=== PATIENT | female | born 1985 | race Caucasian/White ===

== ENCOUNTER 2016-09-03 03:36 | Emergency (ER) | payer MEDICAID, OTHER ==
[~2016-09-03] VITALS: Ht 170.2 cm; Wt 51.0 kg
[~2016-09-03 03:36] MED LIST: ASPI81 PO
[2016-09-03 03:42] VITALS: BP 114/76; PULSE 94; RESP 14; TEMP 98.3; O2SAT 98
[2016-09-03] MEDS ORDERED: ASPI81CH CHEW (03:47)
--- NOTE | 2016-09-03 04:06 | PD ---
HPI Chief Complaint: Abdominal Pain Time Seen by Provider: 03:55 Travel History International Travel<30 days: No Contact w/Intl Traveler<30days: No Traveled to known affect area: No History of Present Illness HPI This is a 30-year-old female who presents to the emergency department with back pain on both sides, moderate severity, that has been present intermittently for one week associated with change in the odor of her urine. She denies any fevers or chills. She denies any nausea or vomiting. She's had some clear vaginal discharge which she thinks is normal in the setting of her cycle. PFSH Past Medical History Blood Disorders: Yes (ANTIPHOSPHOLIPID ANTIBODIES) Diminished Hearing: No Respiratory: Yes (PNEUMONIA) Tetanus Vaccination: > 5 Years Influenza Vaccination: No ?: Not LMP: 5-30-17 : 4 Para: 1 Miscarriage: 3 : 0 Ovarian Cysts: Yes (BILATERAL) Past Surgical History Section: Yes (ONE) Social History Alcohol Use: No Tobacco Use: Yes (<1PPD) Substance Use: No Allergies-Medications (Allergen,Severity, Reaction): Coded Allergies: Lactose (Verified Allergy, Mild, LACTOSE INTOLERANT, 09/03/16) Reported Meds & Prescriptions Reported Meds & Active Scripts Active Reported Aspirin 81 Mg Chew 81 Mg CHEW DAILY Review of Systems Except as stated in HPI: all other systems reviewed are Neg Physical Exam Narrative GENERAL:Well appearing, no acute distress SKIN: Focused skin assessment warm and dry. HEAD: Atraumatic. Normocephalic. EYES: Pupils equal and round. No injection or drainage. ENT: Moist mucous membranes NECK: Trachea midline. CARDIOVASCULAR: Regular rate and rhythm. No murmur appreciated. RESPIRATORY: Clear to auscultation. Breath sounds equal bilaterally. GASTROINTESTINAL: Abdomen soft, non-tender, nondistended. MUSCULOSKELETAL: No obvious deformities. NEUROLOGICAL: Awake and alert. No obvious cranial nerve deficits. Moving all extremities. PSYCHIATRIC: Appropriate mood and affect; insight and judgment normal. Data Data Last Documented VS Vital Signs Date Time Temp Pulse Resp B/P Pulse Ox O2 Delivery O2 Flow Rate FiO2 09/03/16 03:42 98.3 94 14 114/76 98 Orders Complete Blood Count With Diff (09/03/16 04:04) Comprehensive Metabolic Panel (09/03/16 04:04) ^ Insert Iv (09/03/16 04:04) Urinalysis - C+S If Indicated (09/03/16 04:04) Ed Urine Pregnancytest Poc (09/03/16 04:04) Urine Culture (09/03/16 04:10) Ceftriaxone Inj (Rocephin Inj) (09/03/16 04:30) Labs Laboratory Tests Test 09/03/16 04:10 White Blood Count 10.1 TH/MM3 Red Blood Count 4.47 MIL/MM3 Hemoglobin 12.7 GM/DL Hematocrit 38.1 % Mean Corpuscular Volume 85.3 FL Mean Corpuscular Hemoglobin 28.4 PG Mean Corpuscular Hemoglobin 33.3 % Concent Red Cell Distribution Width 13.1 % Platelet Count 286 TH/MM3 Mean Platelet Volume 8.2 FL Neutrophils (%) (Auto) 64.2 % Lymphocytes (%) (Auto) 27.2 % Monocytes (%) (Auto) 5.1 % Eosinophils (%) (Auto) 2.7 % Basophils (%) (Auto) 0.8 % Neutrophils # (Auto) 6.4 TH/MM3 Lymphocytes # (Auto) 2.8 TH/MM3 Monocytes # (Auto) 0.5 TH/MM3 Eosinophils # (Auto) 0.3 TH/MM3 Basophils # (Auto) 0.1 TH/MM3 CBC Comment DIFF FINAL Differential Comment Urine Color YELLOW Urine Turbidity SLIGHT Urine pH 6.0 Urine Specific [place] 1.026 Urine Protein TRACE mg/dL Urine Glucose (UA) NEG mg/dL Urine Ketones TRACE mg/dL Urine Occult Blood NEG Urine Nitrite POS Urine Bilirubin NEG Urine Leukocyte Esterase NEG Urine RBC 0-2 /hpf Urine WBC 0-2 /hpf Urine Squamous Epithelial 0-5 /hpf Cells Urine Bacteria MANY /hpf Microscopic Urinalysis Comment CULTURE INDICATED Sodium Level 142 MEQ/L Potassium Level 3.6 MEQ/L Chloride Level 107 MEQ/L Carbon Dioxide Level 28.5 MEQ/L Anion Gap 7 MEQ/L Blood Urea Nitrogen 14 MG/DL Creatinine 0.80 MG/DL Estimat Glomerular Filtration 85 ML/MIN Rate Random Glucose 96 MG/DL Calcium Level 8.6 MG/DL Total Bilirubin 0.1 MG/DL Aspartate Amino Transf 14 U/L (AST/SGOT) Alanine Aminotransferase 16 U/L (ALT/SGPT) Alkaline Phosphatase 89 U/L Total Protein 7.7 GM/DL Albumin 3.9 GM/DL MDM Medical Decision Making Medical Screen Exam Complete: Yes Emergency Medical Condition: Yes Interpretation(s) Leukocytosis Electrolytes are reassuring Nitrites are positive and bacteria is positive in the urine Differential Diagnosis Pyelonephritis, renal failure, urinary tract infection, kidney stone Narrative Course This is a 30-year-old female who presents the emergency department with back pain and dysuria. She was placed on a monitor and an IV was established. Labs are obtained which are reassuring. Urinalysis confirms likely pyelonephritis. She was given a dose of ceftriaxone and will be discharged home with oral antibiotic therapy. Diagnosis Primary Impression: Pyelonephritis Patient Instructions: General Instructions Additional Instructions: If you develop fever, persistent vomiting, back pain, or inability to eat return to the emergency department as your urine infection may have progressed to a kidney infection. Complete your antibiotics as prescribed. Stay well hydrated with Gatorade or water. Followup with your primary care physician in 2-3 days if your symptoms have not resolved. Med/Other Pt SpecificInfo: Prescription(s) given Scripts Cephalexin (Keflex)500 Mg Vle717 Mg PO Q12H 7 Days Ref 0 Prov:Dennise Beard MD 09/03/16 Disposition: 01 DISCHARGE HOME Condition: Stable Dennise Beard MD Sep 03, 2016 04:06
[2016-09-03 04:18] LABS: AUTOMATED NEUTROPHIL # 6.4 TH/MM3 (1.8-7.7); BASOPHIL # 0.1 TH/MM3 (0-0.2); BASOPHIL % 0.8 % (0.0-2.0); EOSINOPHIL # 0.3 TH/MM3 (0-0.4); EOSINOPHIL % 2.7 % (0.0-4.0); HEMATOCRIT 38.1 % (35.0-46.0); HEMO FLAGS DIFF FINAL; LYMPH % 27.2 % (9.0-44.0); LYMPHOCYTE # 2.8 TH/MM3 (1.0-4.8); MEAN CELL VOLUME 85.3 FL (80.0-100.0); MEAN CORPUSCULAR HEMOGLOBIN 28.4 PG (27.0-34.0); MEAN CORPUSCULAR HGB CONC 33.3 % (32.0-36.0); MONO % 5.1 % (0.0-8.0); NEUT % 64.2 % (16.0-70.0); PLATELET COUNT 286 TH/MM3 (150-450); RED BLOOD COUNT 4.47 MIL/MM3 (4.00-5.30); RED CELL DISTRIBUTION WIDTH 13.1 % (11.6-17.2); WHITE BLOOD COUNT 10.1 TH/MM3 (4.0-11.0)
[2016-09-03 04:19] LABS: BLOOD, URINE NEG (NEG); GLUCOSE,URINE NEG (NEG); KETONE, URINE TRACE mg/dL (NEG)
[2016-09-03 04:23] LABS: NITRITE,URINE POS (NEG); URINE COLOR YELLOW (YELLW/STRAW)
[2016-09-03 04:24] LABS: BACTERIA, URINE MANY /hpf; COMMENT (UR) CULTURE INDICATED; CULTURE IF INDICATED CULTURE INDICATED; RBC, URINE 0-2 /hpf (0-3); SQUAMOUS EPITHELIAL CELL URINE 0-5 /hpf (0-5); WBC, URINE 0-2 /hpf (0-5)
[2016-09-03 04:25] LABS: CHLORIDE 107 MEQ/L (98-107); POTASSIUM 3.6 MEQ/L (3.5-5.1); SODIUM (NA) 142 MEQ/L (136-145)
[2016-09-03 04:29] LABS: ANION GAP 7 MEQ/L (5-15); BICARBONATE 28.5 MEQ/L (21.0-32.0); BLOOD UREA NITROGEN 14 MG/DL (7-18)
[2016-09-03] MEDS ORDERED: cefTRIAXone INJ 1,000 MG in SODIUM CHLORIDE 0.9% INJ 100 ML IV ONE (04:30)
[2016-09-03 04:31] LABS: ALT (GPT) 16 U/L (10-53)
[2016-09-03 04:32] LABS: AST (GOT) 14 U/L (15-37); GLOMERULAR FILTRATION RATE 85 ML/MIN (>89)
[2016-09-03 04:33] LABS: TOTAL BILIRUBIN ADULT 0.1 MG/DL (0.2-1.0)
[2016-09-03 04:35] LABS: ALKALINE PHOSPHATASE 89 U/L (45-117)
[2016-09-03] MEDS ORDERED: CEPH-460 PO (04:42)
[2016-09-03 05:08] VITALS: BP 110/76
== END 2016-09-03 05:17 | disposition home or self-care (01) ==
LOC: PHED 03:36
DX: N12 Tubulo-interstitial nephritis, not specified as acute or chronic (principal); B96.20 Unspecified Escherichia coli [E. coli] as the cause of diseases classified elsewhere
CPT/HCPCS: 80053; 81001; 85025; 87077; 87086; 87186; 96365; 99284; J0696

== ENCOUNTER 2017-03-26 21:04 | Emergency (ER) | payer MEDICAID, OTHER ==
[~2017-03-26] VITALS: Ht 170.2 cm; Wt 55.0 kg
[~2017-03-26 21:04] MED LIST changes: +ASPI-516 CHEW; -ASPI81 PO; +BACT800T5 PO; +CEPH-460 PO; +HYDR-3535 PO
[2017-03-26 21:07] VITALS: BP 109/63; PULSE 84; RESP 16; TEMP 98.3; O2SAT 100
[2017-03-26] MEDS ORDERED: PNV11TAB (21:11)
--- NOTE | 2017-03-26 21:51 | PD ---
HPI Chief Complaint: Abdominal Pain Time Seen by Provider: 21:24 Travel History International Travel<30 days: No Contact w/Intl Traveler<30days: No Traveled to known affect area: No History of Present Illness HPI Said 31-year-old woman who presents to the emergency department complaining of sore throat, as well as and some mild lower abdominal pain. She has a lot of anxiety. She's had multiple losses due to her antiphospholipid antibody syndrome and has not been able to get in to see her OB doctor yet. Last menstrual period was early February. She typically takes Lovenox when she is . She's had 3 losses including one late term, and four healthy children. Multiple failures are sick with strep throat. She otherwise has been doing well. She states some white vaginal discharge which is typical for her when she's , and a little bit of polyuria but no dysuria or other symptoms. History Past Medical History Narrative Medical Antiphospholipid antibody syndrome. Influenza Vaccination: No LMP: 02/17/17 : 8 Para: 4 Past Surgical History Surgical History: No Previous Surgery Social History Alcohol Use: No Tobacco Use: Yes (03/21 PPD) Allergies-Medications (Allergen,Severity, Reaction): Coded Allergies: lactose (Unverified Allergy, Mild, LACTOSE INTOLERANT, 03/26/17) Reported Meds & Prescriptions Reported Meds & Active Scripts Active Reported Gummies (Eax029/FA/Omega3/Dha/Fish Oil) 400 Mcg-32.5 Mg (25 Mg-7.5 Mg) Tab.chew Aspirin 81 Mg Chew 81 Mg CHEW DAILY Review of Systems Except as stated in HPI: all other systems reviewed are Neg Physical Exam Narrative GENERAL: Wall pain 31 year-old woman, no acute distress. SKIN: Focused skin assessment warm/dry. NECK: Trachea midline. No JVD. CARDIOVASCULAR: Regular rate and rhythm. No murmur appreciated. RESPIRATORY: No accessory muscle use. Clear to auscultation. Breath sounds equal bilaterally. GASTROINTESTINAL: Abdomen soft, non-tender, nondistended. Hepatic and splenic margins not palpable. MUSCULOSKELETAL: No obvious deformities. No clubbing. No cyanosis. No edema. NEUROLOGICAL: Awake and alert. No obvious cranial nerve deficits. Motor grossly within normal limits. Normal speech. PSYCHIATRIC: Appropriate mood and affect; insight and judgment normal. Data Data Last Documented VS Vital Signs Date Time Temp Pulse Resp B/P (MAP) Pulse Ox O2 Delivery O2 Flow Rate FiO2 03/26/17 21:07 98.3 84 16 109/63 (78) 100 Room Air Orders Orders Ed Poc Ultrasound (03/26/17 ) Group A Rapid Strep Screen (03/26/17 21:32) Beta Hcg (Quant/Titer) (03/26/17 21:32) Urinalysis - C+S If Indicated (03/26/17 21:47) Strep Culture (Group A) (03/26/17 21:30) Labs Laboratory Tests Test 03/26/17 21:50 03/26/17 22:00 Urine Color YELLOW Urine Turbidity CLEAR Urine pH 7.0 Urine Specific [place] 1.023 Urine Protein TRACE mg/dL Urine Glucose (UA) NEG mg/dL Urine Ketones NEG mg/dL Urine Occult Blood NEG Urine Nitrite NEG Urine Bilirubin NEG Urine Urobilinogen LESS THAN 2.0 MG/DL Urine Leukocyte Esterase NEG Urine WBC 1 /hpf Urine Squamous Epithelial Cells <1 /hpf Urine Mucus FEW /lpf Microscopic Urinalysis Comment CULT NOT INDICATED Human Chorionic Gonadotropin, Quant 205 [facility]U/[facility] Medical Decision Making Medical Screen Exam Complete: Yes Emergency Medical Condition: Yes Interpretation(s) Rapid strep negative Urine negative HCG 205 Differential Diagnosis Strep throat, ITP, ectopic, UTI, other Narrative Course Medical decision making 31 year-old woman, , looks well. Concern for URI, strep throat, UTI. She looks well. She is concerned about not being on her Lovenox. We can represcribe for her. She is arranging follow-up with Dr. Geiger. Attempted a bedside ultrasound. No clear IUP was identified. Labs unremarkable. We'll recommend follow-up with Dr. Geiger's office. We'll restart on her Lovenox. 48 hour repeat Quant. Procedures Procedure Narrative Plan care ultrasound: Focus transabdominal child perform a me at the bedside for the purpose of iron for IUP. No IUP was identified. Portable ultrasound unit was malfunctioning, and images were unable to be saved. Diagnosis Primary Impression: Additional Impressions: Antiphospholipid antibody syndrome Pharyngitis Additional Instructions: Return to the ED in 48 hours for repeat hCG level. Follow-up with Dr. Geiger at the first available appointment. Take Lovenox as prescribed. Return to the ER for any worsening pain, bleeding, or any other new or worsening symptoms. Med/Other Pt SpecificInfo: Prescription(s) given Scripts Enoxaparin Inj (Lovenox Inj) 40 Mg/0.4 Ml Syr 40 MG SQ DAILY for Blood Clot Prevention for 30 Days, SYRINGE 0 Refills Prov: Alton Baird MD 03/26/17 Alton Baird MD Mar 26, 2017 21:51
[2017-03-26 22:26] LABS: BILIRUBIN, URINE NEG (NEG); BLOOD, URINE NEG (NEG); GLUCOSE,URINE NEG (NEG); KETONE, URINE NEG (NEG); MUCUS URINE FEW /lpf (OCC); NITRITE,URINE NEG (NEG); SQUAMOUS EPITHELIAL CELL URINE <1 /hpf (0-5); URINE COLOR YELLOW (YELLW/STRAW); URINE LEUKOCYTE ESTERASE NEG (NEG)
[2017-03-26] MEDS ORDERED: ENOX40P SQ (22:51)
== END 2017-03-26 23:11 | disposition home or self-care (01) ==
LOC: NEPD 21:04
DX: O99.111 Other diseases of the blood and blood-forming organs and certain disorders involving the immune mechanism complicating pregnancy, first trimester (principal); D68.61 Antiphospholipid syndrome; J02.9 Acute pharyngitis, unspecified; O99.331 Smoking (tobacco) complicating pregnancy, first trimester; Z79.82 Long term (current) use of aspirin; Z34.91 Encounter for supervision of normal pregnancy, unspecified, first trimester
CPT/HCPCS: 81001; 84702; 87081; 87880

== ENCOUNTER 2017-03-28 21:14 | Emergency (ER) | payer MEDICAID, OTHER ==
[~2017-03-28 21:14] MED LIST changes: -BACT800T5 PO; -CEPH-460 PO; +ENOX40P SQ; -HYDR-3535 PO; +PNV11TAB
[2017-03-28 21:17] VITALS: BP 118/66; PULSE 81; RESP 16; TEMP 98.6; O2SAT 97
--- NOTE | 2017-03-29 02:44 | PD ---
HPI Chief Complaint: Related Problem Time Seen by Provider: 02:31 Travel History International Travel<30 days: No Contact w/Intl Traveler<30days: No Traveled to known affect area: No History of Present Illness HPI Patient is a 31 year old female who comes in for recheck of her Beta HCG. She was here 2 days ago with abdominal cramping. Her hormone level at that time was 200. She was told to return in 48 hours to recheck it. She says she is still having some lower abdominal cramping and cold symptoms. She denies SOB, chest pain, dysuria or fever. She denies vaginal bleeding or discharge. She says that waiting here for several hours has made her symptoms worse. Nothing seems to make her feel better. PFSH Past Medical History Blood Disorders: Yes (ANTIPHOSPHOLIPID ANTIBODIES) Diminished Hearing: No Respiratory: Yes (PNEUMONIA) Immunizations Current: No Pneumonia: Yes ?: : 8 Para: 4 Miscarriage: 3 : 0 Ovarian Cysts: Yes Past Surgical History Surgical History: No Previous Surgery Section: Yes (x4) Social History Alcohol Use: No Tobacco Use: Yes (/2 PPD) Substance Use: No Allergies-Medications (Allergen,Severity, Reaction): Coded Allergies: lactose (Unverified Allergy, Mild, LACTOSE INTOLERANT, 03/26/17) Reported Meds & Prescriptions Reported Meds & Active Scripts Active Lovenox Inj (Enoxaparin Sodium) 40 Mg/0.4 Ml Syr 40 Mg SQ DAILY 30 Days Reported Gummies (Pqq984/FA/Omega3/Dha/Fish Oil) 400 Mcg-32.5 Mg (25 Mg-7.5 Mg) Tab.chew Aspirin 81 Mg Chew 81 Mg CHEW DAILY Review of Systems General / Constitutional: No: Fever, Chills HENT: Positive: Congestion, No: Headaches, Lightheadedness Cardiovascular: No: Chest Pain or Discomfort Respiratory: Positive: Cough, No: Shortness of Breath Gastrointestinal: Positive: Abdominal Pain, No: Nausea, Vomiting Genitourinary: No: Dysuria, Discharge Musculoskeletal: No: Myalgias Skin: No Rash, No Change in Pigmentation Neurologic: No: Weakness, Dizziness Physical Exam Narrative GENERAL: Awake and alert, in no acute distress. SKIN: Focused skin assessment warm/dry. HEAD: Atraumatic. Normocephalic. EYES: Pupils equal and round. No scleral icterus. EOMI ENT: Mucous membranes pink and moist. CARDIOVASCULAR: Regular rate and rhythm. No murmur appreciated. RESPIRATORY: No accessory muscle use. Clear to auscultation. Breath sounds equal bilaterally. GASTROINTESTINAL: Abdomen soft, non-tender, nondistended. NEUROLOGICAL: Awake and alert. No obvious cranial nerve deficits. Motor grossly within normal limits. Normal speech. Data Data Last Documented VS Vital Signs Date Time Temp Pulse Resp B/P (MAP) Pulse Ox O2 Delivery O2 Flow Rate FiO2 03/28/17 21:17 98.6 81 16 118/66 (83) 97 Orders Orders Beta Hcg (Quant/Titer) (03/28/17 21:23) Labs Laboratory Tests Test 03/28/17 21:30 Human Chorionic Gonadotropin, Quant 473 MIU/ML [facility] Medical Decision Making Medical Screen Exam Complete: Yes Emergency Medical Condition: Yes Medical Record Reviewed: Yes Differential Diagnosis Encounter for blood work versus versus dehydration versus pelvic pain Narrative Course Patient is a 31-year-old female who comes in to have her beta hCG redrawn. She says she still having some lower abdominal cramping. At work that was checked at her previous visit 2 days ago showed no acute abnormalities. Her beta hCG has risen appropriately from 200 to 473. She says she would like to go home. She is advised follow-up with OB. Advised to drink plenty of water. Advised to take Tylenol as needed for pain. Advised to return any time for any worsening symptoms. Diagnosis Primary Impression: Qualified Codes: Z3A.01 - Less than 8 weeks gestation of Patient Instructions: General Instructions, (ED) Additional Instructions: Drink plenty of water. Take Tylenol as needed for pain. Follow-up with your OB. Return to the ED as needed for any worsening symptoms. Disposition: 01 DISCHARGE HOME Condition: Stable Beba Ventura MD Mar 29, 2017 02:44
== END 2017-03-29 03:00 | disposition home or self-care (01) ==
LOC: NEPC 21:14
DX: O26.891 Other specified pregnancy related conditions, first trimester (principal); R10.9 Unspecified abdominal pain; O99.111 Other diseases of the blood and blood-forming organs and certain disorders involving the immune mechanism complicating pregnancy, first trimester; D68.61 Antiphospholipid syndrome; F17.210 Nicotine dependence, cigarettes, uncomplicated; Z79.02 Long term (current) use of antithrombotics/antiplatelets; Z79.82 Long term (current) use of aspirin; Z3A.01 Less than 8 weeks gestation of pregnancy
CPT/HCPCS: 84702; 99281

== ENCOUNTER 2017-04-11 08:17 | Emergency (ER) | payer OTHER ==
[~2017-04-11] VITALS: Ht 170.2 cm; Wt 55.0 kg
[2017-04-11 08:19] VITALS: BP 104/58; PULSE 85; RESP 13; TEMP 98.4; O2SAT 99
[2017-04-11] MEDS ORDERED: SODIUM CHLOR 0.9% 1000 ML INJ 1,000 ML IV ONE (08:39)
[2017-04-11 09:13] LABS: AUTOMATED NEUTROPHIL # 4.5 TH/MM3 (1.8-7.7); BASOPHIL # 0.1 TH/MM3 (0-0.2); BASOPHIL % 0.9 % (0.0-2.0); EOSINOPHIL # 0.2 TH/MM3 (0-0.4); EOSINOPHIL % 2.9 % (0.0-4.0); HEMATOCRIT 38.9 % (35.0-46.0); HEMOGLOBIN 13.1 GM/DL (11.6-15.3); LYMPH % 30.8 % (9.0-44.0); LYMPHOCYTE # 2.3 TH/MM3 (1.0-4.8); MEAN CELL VOLUME 86.3 FL (80.0-100.0); MEAN CORPUSCULAR HGB CONC 33.6 % (32.0-36.0); MEAN PLATELET VOLUME 7.8 FL (7.0-11.0); MONO % 4.5 % (0.0-8.0); MONOCYTE # 0.3 TH/MM3 (0-0.9); NEUT % 60.9 % (16.0-70.0); PLATELET COUNT 341 TH/MM3 (150-450); RED BLOOD COUNT 4.51 MIL/MM3 (4.00-5.30); RED CELL DISTRIBUTION WIDTH 13.9 % (11.6-17.2); WHITE BLOOD COUNT 7.4 TH/MM3 (4.0-11.0)
[2017-04-11 09:31] LABS: BILIRUBIN, URINE NEG (NEG); BLOOD, URINE NEG (NEG); GLUCOSE,URINE NEG (NEG); KETONE, URINE NEG (NEG); MUCUS URINE FEW /lpf (OCC); NITRITE,URINE NEG (NEG); PH, URINE 5.5 (5.0-8.5); SQUAMOUS EPITHELIAL CELL URINE 9 /hpf (0-5); URINE COLOR YELLOW (YELLW/STRAW); URINE LEUKOCYTE ESTERASE NEG (NEG)
[2017-04-11 09:32] LABS: BICARBONATE 27.1 MEQ/L (21.0-32.0); CALCIUM 8.8 MG/DL (8.5-10.1); CREATININE 0.72 MG/DL (0.50-1.00)
--- NOTE | 2017-04-11 10:10 | RADRPT ---
EXAM DATE/TIME: 04/11/2017 09:24 [place] COMPARISON: No previous studies available for comparison. INDICATIONS : Left pelvic pain. LAB(S): Beta-hC, 108 MEDICAL HISTORY : . Antiphospholipids antibodies. Pneumonia. SURGICAL HISTORY : section. ENCOUNTER: Initial ACUITY: 1 day PAIN SCORE: 6/10 LOCATION: Bilateral pelvis MEASUREMENTS: UTERUS: 8.0 x 4.6 x 7.7 cm ENDOMETRIAL STRIPE: 17 mm RIGHT OVARY: 3.3 x 2.2 x 2.0 cm LEFT OVARY: 2.8 x 1.8 x 1.9 cm FREE FLUID: Insignificant CROWN RUMP LENGTH: 0.32 cm = 6 WKS 0 DAYS FHR: 107 BPM FINDINGS: There is a viable intrauterine of 6 weeks zero days by crown-rump length of 3.2 mm. h eart rate 107 beats per minute. Yolk sac present. Small subchorionic hemorrhage adjacent to gestation al sac measuring about 8 mm x 10 mm x 7 mm. Corpus luteum right ovary measuring about 1.1 cm. Left ovary unremarkable. No significant free fluid. CONCLUSION: 1. Single viable intrauterine of 6 weeks 0 days with heart rate 107 beats per minute. Small subchorionic hemorrhage. Corpus luteum cyst right ovary. Meek Tripp MD on April 11, 2017 at 10:01 Board Certified Radiologist. This report was verified electronically.
--- NOTE | 2017-04-11 10:33 | PD ---
HPI Chief Complaint: Abdominal Pain Time Seen by Provider: 08:27 Travel History International Travel<30 days: No Contact w/Intl Traveler<30days: No Traveled to known affect area: No History of Present Illness HPI 31-year-old female complains of pain in the left abdomen. There is a shooting quality to it and it's about 6/10 in severity. She believes she is about 6 weeks . She has no vaginal bleeding and no vaginal discharge. Left- sided flank pain is reported as well. No hematuria reported. Duration about one half days. She takes vitamins she has undergone a ultrasound at an outside facility however it was inconclusive due to early stage of . PFSH Past Medical History Blood Disorders: Yes (ANTIPHOSPHOLIPID ANTIBODIES) Diminished Hearing: No Respiratory: Yes (PNEUMONIA) Immunizations Current: No Pneumonia: Yes Influenza Vaccination: No ?: : 8 Para: 4 Miscarriage: 3 : 0 Ovarian Cysts: Yes Past Surgical History Section: Yes (x4) Social History Alcohol Use: No Tobacco Use: Yes (1/2 PPD) Substance Use: No Allergies-Medications (Allergen,Severity, Reaction): Coded Allergies: lactose (Unverified Allergy, Mild, LACTOSE INTOLERANT, 03/26/17) Reported Meds & Prescriptions Reported Meds & Active Scripts Active Lovenox Inj (Enoxaparin Sodium) 40 Mg/0.4 Ml Syr 40 Mg SQ DAILY 30 Days Reported Gummies (Pvq428/FA/Omega3/Dha/Fish Oil) 400 Mcg-32.5 Mg (25 Mg-7.5 Mg) Tab.chew Aspirin 81 Mg Chew 81 Mg CHEW DAILY Review of Systems Except as stated in HPI: all other systems reviewed are Neg Physical Exam Narrative GENERAL: 31-year-old female well-nourished well-developed no acute distress SKIN: Warm and dry. HEAD: Atraumatic. Normocephalic. EYES: Pupils equal and round. No scleral icterus. No injection or drainage. ENT: No nasal bleeding or discharge. Mucous membranes pink and moist. NECK: Trachea midline. No JVD. CARDIOVASCULAR: Regular rate and rhythm. RESPIRATORY: No accessory muscle use. Clear to auscultation. Breath sounds equal bilaterally. GASTROINTESTINAL: Abdomen soft, non-tender, nondistended. Hepatic and splenic margins not palpable. MUSCULOSKELETAL: Extremities without clubbing, cyanosis, or edema. No obvious deformities. NEUROLOGICAL: Awake and alert. No obvious cranial nerve deficits. Motor grossly within normal limits. Five out of 5 muscle strength in the arms and legs. Normal speech. PSYCHIATRIC: Appropriate mood and affect; insight and judgment normal. Data Data Last Documented VS Vital Signs Date Time Temp Pulse Resp B/P (MAP) Pulse Ox O2 Delivery O2 Flow Rate FiO2 04/11/17 10:59 04/11/17 08:19 98.4 85 13 99 Orders Orders Us Pelvis (Ques Preg/Ectopic) (04/11/17 ) Iv Access Insert/Monitor (04/11/17 08:39) Sodium Chlor 0.9% 1000 Ml Inj (Ns 1000 M (04/11/17 08:39) Beta Hcg (Quant/Titer) (04/11/17 08:39) Complete Blood Count With Diff (04/11/17 08:39) Basic Metabolic Panel (Bmp) (04/11/17 08:39) Urinalysis - C+S If Indicated (04/11/17 08:39) Ed Urine Pregnancytest Poc (04/11/17 08:39) Ed Discharge Order (04/11/17 10:33) Labs Laboratory Tests Test 04/11/17 08:55 White Blood Count 7.4 TH/MM3 Red Blood Count 4.51 MIL/MM3 Hemoglobin 13.1 GM/DL Hematocrit 38.9 % Mean Corpuscular Volume 86.3 FL Mean Corpuscular Hemoglobin 29.0 PG Mean Corpuscular Hemoglobin Concent 33.6 % Red Cell Distribution Width 13.9 % Platelet Count 341 TH/MM3 Mean Platelet Volume 7.8 FL Neutrophils (%) (Auto) 60.9 % Lymphocytes (%) (Auto) 30.8 % Monocytes (%) (Auto) 4.5 % Eosinophils (%) (Auto) 2.9 % Basophils (%) (Auto) 0.9 % Neutrophils # (Auto) 4.5 TH/MM3 Lymphocytes # (Auto) 2.3 TH/MM3 Monocytes # (Auto) 0.3 TH/MM3 Eosinophils # (Auto) 0.2 TH/MM3 Basophils # (Auto) 0.1 TH/MM3 CBC Comment DIFF FINAL Differential Comment Urine Color YELLOW Urine Turbidity HAZY Urine pH 5.5 Urine Specific [place] 1.025 Urine Protein TRACE mg/dL Urine Glucose (UA) NEG mg/dL Urine Ketones NEG mg/dL Urine Occult Blood NEG Urine Nitrite NEG Urine Bilirubin NEG Urine Urobilinogen LESS THAN 2.0 MG/DL Urine Leukocyte Esterase NEG Urine RBC LESS THAN 1 /hpf Urine WBC LESS THAN 1 /hpf Urine Squamous Epithelial Cells 9 /hpf Urine Mucus FEW /lpf Microscopic Urinalysis Comment CULT NOT INDICATED Blood Urea Nitrogen 14 MG/DL Creatinine 0.72 MG/DL Random Glucose 88 MG/DL Calcium Level 8.8 MG/DL Sodium Level 135 MEQ/L Potassium Level 3.8 MEQ/L Chloride Level 104 MEQ/L Carbon Dioxide Level 27.1 MEQ/L Anion Gap 4 MEQ/L Estimat Glomerular Filtration Rate 96 ML/MIN Human Chorionic Gonadotropin, Quant 66473 MIU/ML [facility] Medical Decision Making Medical Screen Exam Complete: Yes Emergency Medical Condition: Yes Differential Diagnosis IUP, UTI, ectopic , ov torsion, appendicitis, TOA, cervicitis, BV, Trichomoniasis, ov cyst, hernia, mittelschmerz, pain from menstruation Narrative Course CBC & BMP Diagram 04/11/17 08:55 Calcium Level 8.8 Last Impressions Pelvis Ultrasound 04/11/17 0000 Signed Impressions: Service Date/Time: Tuesday, April 11, 2017 09:24 - CONCLUSION: 1. Single viable intrauterine of 6 weeks 0 days with heart rate 107 beats per minute. Small subchorionic hemorrhage. Corpus luteum cyst right ovary. Meek Tripp MD Beta 28,104 The patient is resting comfortably and feels better, is alert and in no distress. The patients results and examination findings were discussed. The repeat examination is unremarkable and benign. The history, exam, diagnostic testing, and current condition do not suggest any significant pathology to warrant further testing, continued ED treatment, admission, or surgical evaluation at this point. The vital signs have been stable. The patient does not have uncontrollable pain, intractable vomiting, or other significant symptoms. The patient's condition is stable and appropriate for discharge. The patient will pursue further outpatient evaluation with a primary care physician or other designated or consulting physician as indicated in the discharge instructions. The patient expressed understanding and was agreeable with this plan. Diagnosis Primary Impression: IUP (intrauterine ), incidental Additional Impression: LLQ pain Referrals: [facility] Disposition: 01 DISCHARGE HOME Condition: Stable Leonard Olmedo MD Apr 11, 2017 10:33
== END 2017-04-11 11:07 | disposition home or self-care (01) ==
LOC: NEPE 08:17
DX: O26.91 Pregnancy related conditions, unspecified, first trimester (principal); R10.32 Left lower quadrant pain
CPT/HCPCS: 76700; 80048; 81001; 84702; 84703; 85025; 99285; J7030

== ENCOUNTER → 2017-06-07 | Outpatient (CLI) | payer OTHER | LOC: HPND 09:11 | PROVIDERS: ATTEND Obstetrics & Gynecology | DX: O99.112 Other diseases of the blood and blood-forming organs and certain disorders involving the immune mechanism complicating pregnancy, second trimester (principal); Z36.3 Encounter for antenatal screening for malformations | CPT/HCPCS: 76805 ==

== ENCOUNTER → 2017-07-10 | Outpatient (CLI) | payer MEDICAID, OTHER | LOC: HPND 14:33 | PROVIDERS: ATTEND Obstetrics & Gynecology | DX: O99.112 Other diseases of the blood and blood-forming organs and certain disorders involving the immune mechanism complicating pregnancy, second trimester (principal); Z36.2 Encounter for other antenatal screening follow-up; O09.292 Supervision of pregnancy with other poor reproductive or obstetric history, second trimester | CPT/HCPCS: 76816 ==

== ENCOUNTER → 2017-08-07 | Outpatient (CLI) | payer MEDICAID | LOC: HPND 14:42 | PROVIDERS: ATTEND Obstetrics & Gynecology | DX: O99.119 Other diseases of the blood and blood-forming organs and certain disorders involving the immune mechanism complicating pregnancy, unspecified trimester (principal) | CPT/HCPCS: 76816 ==

== ENCOUNTER 2017-09-05 14:27 | Emergency (ER) | payer MEDICAID ==
--- NOTE | 2017-09-05 15:14 | PD ---
HPI Chief Complaint Pelvic pressure Date Seen: Sep 05, 2017 Time Seen: 15:00 (Paulino Samaniego MD R1) Travel History International Travel<30 Days: No Contact w/Intl Traveler<30Days: No Known Affected Area: No (Paulino Samaniego MD R1) History of Present Illness HPI 31-year-old at 27/5 with a known history of antiphospholipid syndrome presenting to the OB ED with pelvic pressure. Patient states that she has been having occasional contractions, nothing regular or increasing in intensity. She also states that today she has been feeling pelvic pressure when she stands. She denies any gush of fluid, vaginal bleeding, decreased movement, vaginal discharge or dysuria. She does note that her urine has smelled more concentrated recently. Otherwise no fever chills, nausea or vomiting. Denies any trauma but did have intercourse day prior to presentation. (Paulino Samaniego MD R1) History Past Medical History Narrative Medical Antiphospholipid syndrome (Paulino Samaniego MD R1) Obstetric History Obstetric History G 10 P5 4 prior C-sections at term 1 stillborn vaginal delivery at 28 weeks gestation 4 prior first trimester spontaneous abortions Ultrasound showed a subchorionic hematoma early in this that is since resolved Sees OB diagnostics monthly No other known complications during this (Paulino Samaniego MD R1) Past Surgical History Narrative Surgical 4 prior C-sections No other surgeries (Paulino Samaniego MD R1) Family History Narrative Family History Maternal history of cancer, otherwise noncontributory (Paulino Samaniego MD R1) Social History Narrative Social History Lives at home with her fianc and 2-year-old child. 3 other living children are living with biological father Smokes 5-6 cigarettes per day Denies any alcohol or illicit drug use during this (Paulino Samaniego MD R1) Allergies-Medications (Allergen,Severity, Reaction): Coded Allergies: lactose (Unverified Allergy, Mild, LACTOSE INTOLERANT, 03/26/17) Home Meds Active Scripts Enoxaparin Inj (Lovenox Inj) 40 Mg/0.4 Ml Syr, 40 MG SQ DAILY for Blood Clot Prevention for 30 Days, SYRINGE 0 Refills Prov:Alton Baird MD 03/26/17 Reported Medications Pwb570/FA/Omega3/Dha/Fish Oil ( Gummies) 400 Mcg-32.5 Mg (25 Mg-7.5 Mg) Tab.chew 03/26/17 Aspirin (Aspirin) 81 Mg Chew, 81 MG CHEW DAILY, TAB 0 Refills 09/03/16 Review of Systems Except as stated in HPI: all other systems reviewed are Neg (Paulino Samaniego MD R1) Physical Exam Narrative GENERAL: Well-nourished, well-developed patient. SKIN: Warm and dry. HEAD: Normocephalic and atraumatic. EYES: No scleral icterus. No injection or drainage. ENT: No nasal drainage noted. Mucous membranes pink. Airway patent. NECK: Supple, trachea midline. No JVD. CARDIOVASCULAR: Regular rate and rhythm without murmurs, gallops, or rubs. RESPIRATORY: Breath sounds equal bilaterally. No accessory muscle use. BREASTS: Bilateral exam showed no masses , no retractions, no nipple discharge. ABDOMEN/GI: Abdomen soft, non-tender, bowel sounds present, no rebound, no guarding Gravid to 27 weeks size GENITOURINARY: External Genitalia: intact and normal in appearance Cervix: Posterior Dilatation: 0 Effacement: 0 Station: -3 Membranes: Intact Uterine Contractions: Small sporadic contractions appreciated FHT's: Category: 1 Baseline: 150 Reactive: Yes Variability: Moderate Decels: None EXTREMITIES: No cyanosis or edema. BACK: Nontender without obvious deformity. No CVA tenderness. NEUROLOGICAL: Awake and alert. Motor and sensory grossly within normal limits. Five out of 5 muscle strength in all muscle groups. Normal speech. (Paulino Samaniego MD R1) MDM Plan 31-year-old at 27/5 with a known history of antiphospholipid syndrome presenting to the OB ED with occasional contractions and pelvic pressure. - care with Dr. Geiger -Bimanual exam shows patient's cervix is long thick and closed -Reassuring category 1 FHT -Patient does have small occasional contractions on the monitor -Urine dipstick with 30 protein, small leukocyte esterase -Ordering official UA -Reji give 1 L bolus of lactated Ringer's -Tylenol 650 mg p.o. once -Counseled patient about resting and staying hydrated (Paulino Samaniego MD R1) Diagnosis Diagnosis: Primary Impression: Premature uterine contractions in second trimester, antepartum Additional Impression: Feeling pelvic pressure in in second trimester, antepartum Disposition: 01 DISCHARGE HOME Condition: Stable Paulino Samaniego MD R1 Sep 05, 2017 15:14 Bill Ramirez II, MD Sep 05, 2017 16:02
[2017-09-05] MEDS ORDERED: LACTATED RINGER'S 1000 ML INJ 1,000 ML IV ONE (15:30)
[2017-09-05] MEDS ORDERED: ACETAMINOPHEN 325 MG TAB PO ONE (15:30)
[2017-09-05 16:07] LABS: BACTERIA, URINE FEW /hpf; BILIRUBIN, URINE NEG (NEG); BLOOD, URINE SMALL (NEG); CALCIUM OXALATE CRYSTALS,URINE OCC /hpf; GLUCOSE,URINE NEG (NEG); KETONE, URINE NEG (NEG); NITRITE,URINE NEG (NEG); RENAL EPITHELIAL CELLS 1 /hpf; SQUAMOUS EPITHELIAL CELL URINE 3 /hpf (0-5); URINE COLOR YELLOW (YELLW/STRAW); URINE LEUKOCYTE ESTERASE MOD (NEG)
== END 2017-09-05 16:38 | disposition home or self-care (01) ==
LOC: HOBED 14:27
DX: O47.02 False labor before 37 completed weeks of gestation, second trimester (principal); B96.20 Unspecified Escherichia coli [E. coli] as the cause of diseases classified elsewhere; O99.112 Other diseases of the blood and blood-forming organs and certain disorders involving the immune mechanism complicating pregnancy, second trimester; D68.61 Antiphospholipid syndrome; O99.332 Smoking (tobacco) complicating pregnancy, second trimester; F17.210 Nicotine dependence, cigarettes, uncomplicated; Z3A.27 27 weeks gestation of pregnancy; Z79.82 Long term (current) use of aspirin; Z79.899 Other long term (current) drug therapy
CPT/HCPCS: 81001; 87077; 87086; 87186; 96360; 99284; J7120

== ENCOUNTER → 2017-09-11 | Outpatient (CLI) | payer MEDICAID | LOC: HPND 14:39 | PROVIDERS: ATTEND Obstetrics & Gynecology | DX: O99.112 Other diseases of the blood and blood-forming organs and certain disorders involving the immune mechanism complicating pregnancy, second trimester (principal); D68.61 Antiphospholipid syndrome | CPT/HCPCS: 76816 ==

== ENCOUNTER 2017-11-13 14:27 | Inpatient (IN) ==
[2017-11-13] MEDS ORDERED: Phenylephrine/NS 1000 MCG/10ML Syringe IV.PUSH ONE (14:54)
[2017-11-13] MEDS ORDERED: Citric Acid/Sodium Citrate Liq 30 ML UDC PO SCH (15:15)
--- NOTE | 2017-11-13 15:24 | P.HPOB ---
History of Present Illness Primary Care Physician: No Primary Care Physician Dr. Geiger Chief Complaint: Painful contractions History of Present Illness: Patient is a 31-year-old white female G 10 now 37 weeks previous C- section [address] Geiger's who presents now with contractions and decreased movement. She presents complaining of painful regular contractions and on the monitor every 3-4 minute she is having a significant contractions that she certainly describes as very painful, heart rate tracing reactive, patient has a history of antiphospholipid syndrome and has had a demise in the past that she did deliver vaginally and then 4 C- sections she has had for spontaneous AB's as well once again is all related to her coagulation defect. She has been on heparin and aspirin through this and her last dosing was at 5 AM this morning a shot of heparin and baby aspirin Weeks Gestation:: 37 Para: 5 (4 C-sections 1 vaginal the demise) : 10 Total # of Miscarriage(s): 4 Review of Systems Constitutional: Denies anorexia, Denies body ache(s), Denies chills, Denies daytime sleepiness, Denies excessive sweating, Denies fatigue, Denies fever(s), Denies headache(s), Denies increased appetite, Denies lack of energy, Denies malaise, Denies night sweats, Denies weakness, Denies weight gain, Denies weight loss, Denies other Cardiovascular: Denies bluish discoloration of hand/feet, Denies chest pain, Denies chest pain at rest, Denies chest pain with activity, Denies excessive sweating, Denies fainting, Denies fast heart rate, Denies foot swelling, Denies generalized swelling, Denies irregular heart rhythm, Denies leg pain with activity, Denies leg sores, Denies leg swelling, Denies lightheadedness, Denies radiating jaw, neck or arm pain, Denies rapid, pounding, or irregular heartbeat , Denies shortness of breath, Denies shortness of breath with activity, Denies shortness of breath when lying down, Denies shortness of breath causing sudden awakening, Denies slow heart rate, Denies other Respiratory: Denies change in phlegm color, Denies chest congestion, Denies cough, Denies coughing up blood, Denies excessive phlegm production, Denies pain on inspiration, Denies pain with cough, Denies shortness of breath, Denies shortness of breath with activity, Denies snoring, Denies stridor, Denies wheezing, Denies other Gastrointestinal: Reports abdominal pain, Denies belching, Denies black, tarry stools, Denies bloating, Denies bright, red blood in stools, Denies change in bowel habits, Denies constant urge to pass stool, Denies change in stools, Denies coffee ground vomit, Denies constipation, Denies cramping, Denies difficulty swallowing, Denies excessive passing of gas, Denies feeling full early, Denies heartburn, Denies incontinent of stools, Denies loose stools, Denies nausea, Denies pain with swallowing, Denies vomiting, Denies vomiting blood, Denies other Genitourinary: Denies abnormal periods, Denies abnormal vaginal bleeding, Denies absent period, Denies bleeding between periods, Denies blood in urine, Denies difficulty starting urination, Denies difficulty urinating, Denies dribbling after urination, Denies frequent nighttime urination, Denies genital itching, Denies genital lesions, Denies heavy periods, Denies hot flashes, Denies light periods, Denies nipple discharge, Denies painful intercourse, Denies painful periods, Denies painful urination, Denies pelvic pain, Denies prolapse symptoms, Denies sexual problems, Denies side pain, Denies urinary incontinence, Denies urinary urgency, Denies vaginal discharge, Denies vaginal dryness, Denies vaginal odor, Denies vaginal itching, Denies other Comments: Cervix is closed thick and high posterior Musculoskeletal: Denies abnormal walking, Denies back pain, Denies body aches, Denies decreased muscle mass, Denies deformity, Denies joint pain, Denies joint swelling, Denies limited joint movement, Denies loss of height, Denies muscle cramps, Denies muscle weakness, Denies neck pain, Denies numbness, Denies radiating pain into limb, Denies stiffness, Denies tingling, Denies other Neurologic: Denies abnormal hearing, Denies abnormal movements, Denies abnormal speech, Denies abnormal walking, Denies behavioral changes, Denies burning sensations, Denies confusion, Denies dizziness, Denies fainting, Denies frequent falls, Denies headache(s), Denies lack of coordination, Denies localized weakness, Denies loss of vision, Denies memory loss, Denies numbness, Denies other visual disturbances, Denies radiating pain, Denies restless legs, Denies convulsions, Denies seizure-like activity, Denies sensory deficit, Denies tingling, Denies tingling/numbness/burning sensations, Denies tremor(s), Denies unsteadiness, Denies weakness, Denies other PMFSH - Medical History Medical History: Medical History (Last Updated 10/27/17 @ 17:36 by Bill Ramirez MD) Antiphospholipid antibody syndrome complicating - Surgical History Surgical History: Surgical History (Last Updated 11/10/17 @ 18:54 by Alton Swain MD) History of delivery - Tobacco History Smoking Status: Current every day smoker Tobacco Type: Cigarettes - Alcohol History How Often Do You Have a Drink Containing Alcohol: Never - Substance Use History Substance History: No History of Abuse - Travel History History of Recent Travel: No Recent Travel in the [place] Within the Last 8 Weeks: No Recent Travel Out of the Country Within the Last 8 Weeks: No Medications and Allergies Active Medications: Active Medications Citric Acid/Sodium Citrate (Sodium Citrate/Citric Acid Liq) 30 ml PO MICROELECTRONICS TECHNICIAN ANDREW Stop: 11/17/17 15:14 Cefazolin Sodium 2,000 mg/ (Sodium Chloride) 100 mls @ 200 mls/hr IV.SIG MICROELECTRONICS TECHNICIAN ANDREW Stop: 11/17/17 15:59 Lactated Ringer's (Lr 1000 Ml Inj) 1,000 mls @ 150 mls/hr IV.CONT .Q6H40M [facility] Lactated Ringer's (Lr 1000 Ml Inj) 1,000 mls @ 2,000 mls/hr IV.SIG .Q30M ONE Stop: 11/13/17 15:44 Allergies Allergy/AdvReac Type Severity Reaction Status Date / Time lactose Allergy Mild LACTOSE Unverified 03/26/17 21:28 INTOLERANT Exam Vital signs: Vital Signs 11/13/17 14:58 Temperature 98.9 F Pulse Rate 105 H Respiratory Rate 17 Blood Pressure 119/67 - Constitutional no acute distress - Routine HEENT Exam Head: Present: normocephalic, atraumatic - Routine Respiratory Exam Present: CTA bilaterally - Routine Cardiovascular Exam Present: RRR, S1, S2 - Routine Abdominal Exam Present: soft Comments: Size equal dates - Routine Exam Comments: Cervix is closed thick and high - Routine Skin Exam Present: intact Comments: A lot of tattoos - Routine Neurological Exam Present: alert, oriented X3, CN II-XII intact Caprini VTE Risk Assessment Caprini VTE Risk Assessment: Moderate/High Risk (score >= 2) Caprini Risk Assessment Model: Point Value = 1 Point Value = 2 Point Value = 3 Point Value = 5 Age 41-60 Minor surgery BMI > 25 kg/m2 Swollen legs Varicose veins or History of unexplained or recurrent spontaneous Oral contraceptives or hormone replacement Sepsis (< 1 month) Serious lung disease, including pneumonia (< 1 month) Abnormal pulmonary function Acute myocardial infarction Congestive heart failure (< 1 month) History of inflammatory bowel disease Medical patient at bed rest Age 61-74 Arthroscopic surgery Major open surgery (> 45 min) Laparoscopic surgery (> 45 min) Malignancy Confined to bed (> 72 hours) Immobilizing plaster cast Central venous access Age >= 75 History of VTE Family history of VTE Factor V Leiden Prothrombin [id number] Lupus anticoagulant Anticardiolipin antibodies Elevated serum homocysteine Heparin-induced thrombocytopenia Other congenital or acquired thrombophilia Stroke (< 1 month) Elective arthroplasty Hip, pelvis, or leg fracture Acute spinal cord injury (< 1 month) Prophylaxis Regimen: Total Risk Factor Score Risk Level Prophylaxis Regimen 0-1 Low Early ambulation 2 Moderate Order ONE of the following: *Sequential Compression Device (SCD) *Heparin 5000 units SQ BID 3-4 Higher Order ONE of the following medications: *Heparin 5000 units SQ TID *Enoxaparin/Lovenox 40 mg SQ daily (WT < 150 kg, CrCl > 30 mL/min) *Enoxaparin/Lovenox 30 mg SQ daily (WT < 150 kg, CrCl > 10-29 mL/min) *Enoxaparin/Lovenox 30 mg SQ BID (WT < 150 kg, CrCl > 30 mL/min) AND/OR *Sequential Compression Device (SCD) 5 or more Highest Order ONE of the following medications: *Heparin 5000 units SQ TID (Preferred with Epidurals) *Enoxaparin/Lovenox 40 mg SQ daily (WT < 150 kg, CrCl > 30 mL/min) *Enoxaparin/Lovenox 30 mg SQ daily (WT < 150 kg, CrCl > 10-29 mL/min) *Enoxaparin/Lovenox 30 mg SQ BID (WT < 150 kg, CrCl > 30 mL/min) AND *Sequential Compression Device (SCD) Assessment and Plan - Diagnosis (1) Previous section complicating Code(s): O34.219 - Maternal care for unspecified type scar from previous delivery Status: Acute (2) Uterine contractions during Code(s): O62.2 - Other uterine inertia Status: Acute (3) Antiphospholipid syndrome complicating , antepartum Code(s): O99.119 - Other diseases of the blood and blood-forming organs and certain disorders involving the immune mechanism complicating , unspecified trimester; D68.61 - Antiphospholipid syndrome Status: Acute - Plan Plan is for RCS today after discussing with Dr Geiger
[2017-11-13] MEDS ORDERED: Morphine Sulfate PF Inj 5 MG/10 ML Ampul ONE (15:56)
[2017-11-13] MEDS ORDERED: ceFAZolin Inj 2,000 MG in Sodium Chlor 0.9% Inj 80 ML IV.SIG SCH (16:00)
[2017-11-13 16:15] LABS: Baso # (Auto) 0.1 th/mm3 (0.0-0.2); Baso % (Auto) 0.4 % (0.0-2.0); Eos # (Auto) 0.1 th/mm3 (0.0-0.4); Eos % (Auto) 0.7 % (0.0-4.0); Hematocrit 30.6 % (35.0-46.0); Hemoglobin 10.2 gm/dL (11.6-15.3); Lymph # (Auto) 2.3 th/mm3 (1.0-4.8); Lymph % (Auto) 12.8 % (9.0-44.0); Mean Corpuscular HGB Conc 33.5 % (32.0-36.0); Mean Corpuscular Hemoglobin 28.2 pg (27.0-34.0); Mean Corpuscular Volume 84.4 fL (80.0-100.0); Mean Platelet Volume 8.9 fL (7.0-11.0); Mono # (Auto) 0.8 th/mm3 (0.0-0.9); Mono % (Auto) 4.2 % (0.0-8.0); Neut # (Auto) 14.7 th/mm3 (1.8-7.7); Neut % (Auto) 81.9 % (16.0-70.0); Platelet Count 272 th/mm3 (150-450); Red Blood Count 3.62 mil/mm3 (4.00-5.30); Red Cell Distribution Width 13.5 % (11.6-17.2); White Blood Count 17.9 th/mm3 (4.0-11.0)
[2017-11-13 16:22] LABS: Amphetamine Screen,Urine Neg (Neg); Barbiturate Screen,Urine Neg (Neg); Cannabinoid Screen,Urine Neg (Neg); Cocaine Screen,Urine Neg (Neg)
[2017-11-13 16:24] LABS: Bilirubin,Urine Negative (Negative); Clarity,Urine Clear (Clear); Color,Urine Yellow (Yellw/Straw); Glucose,Urine (UA) Negative (Negative); Leukocyte Esterase,Urine Negative (Negative); Mucus,Urine Few /lpf (Occasional); Nitrite,Urine Negative (Negative); Specific Gravity,Urine 1.009 (1.002-1.035); Squamous Epithelial Cell,Urine 1 /hpf (0-5)
[2017-11-13 16:24] LABS: Activated Partial Thrombo Time 23.1 sec (24.3-30.1); INR 0.9 Ratio; Prothrombin Time 9.4 sec (9.8-11.6)
[2017-11-13 16:25] LABS: Opiate Screen,Urine Neg (Neg)
[2017-11-13] MEDS ORDERED: Naloxone Inj 0.4 MG/ML Vial IV.PUSH PRN (17:15)
[2017-11-13] MEDS ORDERED: Oxytocin 30 Units/500ml Premix 30 UNITS/500 ML BAG IV.SIG ONE (18:48)
[2017-11-13] MEDS ORDERED: Acetaminophen 325 MG Tablet PO PRN (18:48)
[2017-11-13] MEDS ORDERED: Simethicone 80 MG Chew Tablet PO PRN (18:48)
[2017-11-13] MEDS ORDERED: Zolpidem Tartrate 5 MG Tablet PO PRN (18:48)
[2017-11-13] MEDS ORDERED: Oxytocin 30 Units/500ml Premix 30 UNITS/500 ML BAG ONE (19:06)
--- NOTE | 2017-11-13 21:35 | P.OP ---
- Preoperative Diagnosis (1) Uterine contractions during (2) Previous section complicating (3) Antiphospholipid syndrome complicating , antepartum - Postoperative Diagnosis (1) Uterine contractions during (2) Previous section complicating (3) Antiphospholipid syndrome complicating , antepartum (4) Pelvic adhesions Date of procedure: 11/15/17 Procedure: Repeat Low Transverse C section Anesthesia: spinal Surgeon: Isaac Geiger MD Estimated blood loss (mL): 500 Operation and Findings: Findings Normal male Apgars 7/8 weight 6/10 Normal uterus normal to normal ovaries normal posterior anterior cul-de-sac. The bladder was tacked up very high over the lower uterine segment and required quite a bit of dissection to get it down. Upon entering the uterus we encountered the placenta and needed to go through it to get to the baby. Complications she required some 100 amount of dissection to get the bladder off the lower uterine segment in order to enter the uterus. Procedure in detail patient was taken to the operating room identified by name band and verbally she was given a spinal anesthetic prepped and draped in the usual sterile fashion for a section. The timeout was taken and several old incisions were then excised completely with a fairly wide excision. This incision was taken down to the fascia the fascia was taken off the rectus muscle by blunt and sharp dissection the rectus muscles were spread bluntly and the peritoneum entered under direct vision without difficulty the incision was extended with care to avoid the urinary bladder the bladder was noted to be quite high up on the lower uterine segment and a bladder flap was created in the usual fashion but this required quite a bit of extra dissection in order to preserve bladder. The lower uterine segment was then incised transversely and taken down until we encountered the placenta we then poked through the placenta gravid vertex and delivered the baby quickly and efficiently. We did not delay cord clamping since we went to the placenta and the baby was handed off to the resuscitation team present. The placenta was then delivered manually without difficulty and the the uterus was curettaged twice with a wet lap. The uterine incision was then repaired with 0 Vicryl in a running fashion in 2 layers the second layer imbricating the first. The cul-de-sacs were cleaned of blood and debris the uterus was delivered back into the abdomen and hemostasis was checked and was excellent. The rectus muscles were then reapproximated with 0 Vicryl in a running fashion. Small bleeders were coagulated because she is on heparin we made especially sure that each layer was quite dry before proceeding the fascia was then repaired with 0 Vicryl from lateral to midline bilaterally and the subcu was repaired with 3-0 Vicryl in a running fashion this skin was repaired with 4-0 Monocryl in a subcuticular fashion with excellent results she tolerated the procedure well went to recovery room and will be restarted on heparin in 24 hours since she got epidural.
[2017-11-13] MEDS: Senna/Docusate Sodium 8.6/50 MG Tablet PO PRN (21:45)
[2017-11-13] MEDS ORDERED: Oxytocin 30 Units/500ml Premix 30 UNITS/500 ML BAG IV.SIG PRN (23:49)
[2017-11-14 05:50] LABS: Baso # (Auto) 0.1 th/mm3 (0.0-0.2); Baso % (Auto) 0.3 % (0.0-2.0); Eos % (Auto) 0.2 % (0.0-4.0); Hemoglobin 8.8 gm/dL (11.6-15.3); Lymph # (Auto) 2.1 th/mm3 (1.0-4.8); Lymph % (Auto) 12.7 % (9.0-44.0); Mean Corpuscular HGB Conc 35.4 % (32.0-36.0); Mean Corpuscular Hemoglobin 29.9 pg (27.0-34.0); Mean Corpuscular Volume 84.5 fL (80.0-100.0); Mean Platelet Volume 9.2 fL (7.0-11.0); Mono # (Auto) 1.1 th/mm3 (0.0-0.9); Mono % (Auto) 6.4 % (0.0-8.0); Neut # (Auto) 13.4 th/mm3 (1.8-7.7); Neut % (Auto) 80.4 % (16.0-70.0); Platelet Count 283 th/mm3 (150-450); Red Blood Count 2.96 mil/mm3 (4.00-5.30); Red Cell Distribution Width 13.3 % (11.6-17.2); White Blood Count 16.7 th/mm3 (4.0-11.0)
[2017-11-14] MEDS ORDERED: Heparin - SQ 10,000 UNITS/ML Vial SQ SCH (07:00)
[2017-11-14] MEDS: Senna/Docusate Sodium 8.6/50 MG Tablet PO PRN (12:10)
[2017-11-14] MEDS: Ibuprofen 600 MG Tablet PO PRN ×2 (12:10→19:45)
--- NOTE | 2017-11-14 14:31 | P.PNOB ---
Subjective Post op day: 1 Objective Vital Signs/I&O: Vital Signs 11/13/17 14:58 11/13/17 18:45 11/13/17 19:00 Temperature 98.9 F 97.4 F L Pulse Rate 105 H 77 64 Respiratory Rate 17 18 18 Blood Pressure 119/67 109/53 L 103/55 L 11/13/17 19:15 11/13/17 19:30 11/13/17 19:43 Temperature 97.5 F L Pulse Rate 62 79 62 Respiratory Rate 20 20 20 Blood Pressure 103/52 L 108/52 L 11/13/17 19:45 11/13/17 20:15 11/14/17 00:00 Temperature 97.6 F 97.4 F L Pulse Rate 62 62 Respiratory Rate 16 16 Blood Pressure 101/54 L 98/56 L 91/48 L 11/14/17 00:20 11/14/17 04:00 11/14/17 08:20 Temperature 98.0 F 97.6 F Pulse Rate 66 70 Respiratory Rate 16 18 18 Blood Pressure 97/53 L 102/61 Intake & Output 11/13/17 11/14/17 11/14/17 18:59 06:59 18:59 Intake Total 500 / 500 100 / 100 Balance 500 / 500 100 / 100 Intake: IV 500 / 500 100 / 100 Pitocin 30 Units/NS 500 ml 500 / 500 Premix 30 units In 500 ml @ 100 mls/hr IV.SIG UNSCH PRN Rx#: [id number] Ancef Inj 1,000 MG In NS Inj 100 / 100 100 ML @ 200 mls/hr IV.SIG Q8H ANDREW Rx#:[id number] Result Diagrams: 11/14/17 04:38 Objective Remarks: GENERAL: Well-nourished, well-developed patient. CARDIOVASCULAR: Regular rate and rhythm without murmurs, gallops, or rubs. RESPIRATORY: Breath sounds equal bilaterally. No accessory muscle use. ABDOMEN/GI: Abdomen soft, non-tender, bowel sounds present. Incision: dressing Clean, dry and intact. Fundus: Firm, non-tender at umbilicus. GENITOURINARY: Light to moderate bleeding. EXTREMITIES: No cyanosis or edema, non-tender, without signs of DVT. Medications and IVs: Active Medications Acetaminophen (Tylenol) 650 mg PO Q6H PRN PRN Reason: PAIN SCALE 1 TO 2 Citric Acid/Sodium Citrate (Sodium Citrate/Citric Acid Liq) 30 ml PO ELECTRONIC EQUIPMENT MAINT TECH [facility] Stop: 11/17/17 15:14 Diphenhydramine HCl (Benadryl) 50 mg PO Q6H PRN PRN Reason: MILD TO MODERATE ITCHING Stop: 11/14/17 17:14 Last Admin: 11/13/17 21:45 Dose: 50 mg Diphenhydramine HCl (Benadryl Inj) 25 mg IV.PUSH Q6H PRN PRN Reason: MILD TO MODERATE ITCHING Stop: 11/14/17 17:14 Diphtheria/Pertussis/Tetanus Vacc (Boostrix Vaccine Inj) 0.5 ml IM .ONCE ONE Stop: 11/14/17 16:01 Heparin Sodium (Porcine) (Heparin Inj) 5,000 units SQ Q12H [facility]1983 Cefazolin Sodium 2,000 mg/ (Sodium Chloride) 100 mls @ 200 mls/hr IV.SIG ELECTRONIC EQUIPMENT MAINT TECH [facility] Stop: 11/17/17 15:59 Lactated Ringer's (Lr 1000 Ml Inj) 1,000 mls @ 150 mls/hr IV.CONT .Q6H40M [facility] Last Admin: 11/14/17 07:34 Dose: Not Given Lactated Ringer's (Lr 1000 Ml Inj) 1,000 mls @ 100 mls/hr IV.CONT .Q10H [facility] Stop: 11/14/17 19:48 Last Admin: 11/14/17 00:45 Dose: 100 mls/hr Oxytocin (Pitocin 30 Units/Ns 500 Ml Premix) 30 units in 500 mls @ 100 mls/hr IV.SIG UNSCH PRN PRN Reason: Heavy bleeding Last Infusion: 11/14/17 00:45 Dose: Infused Ibuprofen (Motrin) 800 mg PO Q8H PRN PRN Reason: cramping Last Admin: 11/13/17 23:47 Dose: 800 mg Ibuprofen (Motrin) 600 mg PO Q6H PRN PRN Reason: ABDOMINAL PAIN Last Admin: 11/14/17 12:10 Dose: 600 mg Measles/Mumps/Rubella Vaccine Live (M-M-R Ii Vaccine Inj) 0.5 ml SQ .ONCE ONE Stop: 11/14/17 16:01 Miscellaneous Information ([facility] [place] Nursing Information) 1 each OTHER UNSCH PRN PRN Reason: SEE LABEL COMMENTS Stop: 11/14/17 17:14 Miscellaneous Information ([facility] [place] Nursing Information) 1 each OTHER UNSCH PRN PRN Reason: SEE LABEL COMMENTS Stop: 11/14/17 17:14 Naloxone HCl (Narcan Inj) 0.4 mg IV.PUSH UNSCH PRN PRN Reason: SEE LABEL COMMENTS Stop: 11/14/17 17:14 Ondansetron HCl (Zofran Inj) 4 mg IV.PUSH Q6H PRN PRN Reason: NAUSEA OR VOMITING Oxycodone/Acetaminophen (Percocet 5/325 Mg) 2 tab PO Q4H PRN PRN Reason: PAIN SCALE 6 TO 10 Oxycodone/Acetaminophen (Percocet 5/325 Mg) 1 tab PO Q4H PRN PRN Reason: PAIN SCALE 3 TO 5 Last Admin: 11/14/17 05:31 Dose: 1 tab Senna/Docusate Sodium (Angelita-Colace) 2 tab PO Q12H PRN PRN Reason: CONSTIPATION Last Admin: 11/14/17 12:10 Dose: 2 tab Simethicone (Mylicon Chew) 80 mg PO QID PRN PRN Reason: FLATULENCE Sodium Chloride (Ns Flush) 2 ml IV.FLUSH BID ANDREW Last Admin: 11/14/17 08:21 Dose: 2 ml Sodium Chloride (Ns Flush) 2 ml IV.FLUSH PRN PRN PRN Reason: FLUSH AFTER USING IV ACCESS Zolpidem Tartrate (Ambien) 5 mg PO HS PRN PRN Reason: INSOMNIA Assessment and Plan - Diagnosis (1) S/P repeat low transverse Code(s): Z98.891 - History of uterine scar from previous surgery Status: Acute Plan: routine post op care (2) Antiphospholipid syndrome complicating , antepartum Code(s): O99.119 - Other diseases of the blood and blood-forming organs and certain disorders involving the immune mechanism complicating , unspecified trimester; D68.61 - Antiphospholipid syndrome Status: Acute Plan: heparin will be restarted - Plan POD #1 pt doing well pain well managed with oral pain medication hgb 8.8 pt denies any SOB, chest pain or dizziness with ambulation, will treat PP with oral iron pt will shower today bonding with infant will restart heparin tonight routine post op care Discharge Planning: dc home in 1-2 days
[2017-11-14] MEDS ORDERED: Measles/Mumps/Rubella Vaccine Inj 0.5 ML Vial SQ ONE (16:00)
[2017-11-14] MEDS ORDERED: Diphtheria/Tetanus/Pertussis Vaccine Inj 0.5 ML Syringe IM ONE (16:00)
[2017-11-14] MEDS: Heparin - SQ 10,000 UNITS/ML Vial SQ SCH (19:46)
[2017-11-15] MEDS: Ibuprofen 600 MG Tablet PO PRN ×4 (01:42→20:54)
[2017-11-15] MEDS: Heparin - SQ 10,000 UNITS/ML Vial SQ SCH ×2 (06:01→19:23)
--- NOTE | 2017-11-15 13:18 | P.PNOB ---
Subjective Post op day: 2 Objective Vital Signs/I&O: Vital Signs 11/14/17 15:34 11/14/17 20:00 11/15/17 08:00 Temperature 97.9 F 98.2 F 98.0 F Pulse Rate 64 84 82 Respiratory Rate 18 18 18 Blood Pressure 107/53 L 97/59 L 111/57 L Intake & Output 11/14/17 11/15/17 11/15/17 18:59 06:59 18:59 Intake Total 1100 / 1100 Balance 1100 / 1100 Intake: IV 1100 / 1100 LR 1000 mL Inj 1,000 ML @ 100 1000 / 1000 mls/hr IV.CONT .Q10H [facility] Rx#: [id number] Ancef Inj 1,000 MG In NS Inj 100 / 100 100 ML @ 200 mls/hr IV.SIG Q8H [facility] Rx#:[id number] Result Diagrams: 11/14/17 04:38 Objective Remarks: GENERAL: Well-nourished, well-developed patient. CARDIOVASCULAR: Regular rate and rhythm without murmurs, gallops, or rubs. RESPIRATORY: Breath sounds equal bilaterally. No accessory muscle use. ABDOMEN/GI: Abdomen soft, non-tender, bowel sounds present. Incision: dressing Clean, dry and intact. Fundus: Firm, non-tender at umbilicus. GENITOURINARY: Light to moderate bleeding. EXTREMITIES: No cyanosis or edema, non-tender, without signs of DVT. Medications and IVs: Active Medications Acetaminophen (Tylenol) 650 mg PO Q6H PRN PRN Reason: PAIN SCALE 1 TO 2 Citric Acid/Sodium Citrate (Sodium Citrate/Citric Acid Liq) 30 ml PO [employer]EARCH NEUROPSYCHOLOGIST [facility] Stop: 11/17/17 15:14 Heparin Sodium (Porcine) (Heparin Inj) 5,000 units SQ Q12H [facility] Last Admin: 11/15/17 06:01 Dose: 5,000 units Cefazolin Sodium 2,000 mg/ (Sodium Chloride) 100 mls @ 200 mls/hr IV.SIG [employer]EARCH NEUROPSYCHOLOGIST [facility] Stop: 11/17/17 15:59 Lactated Ringer's (Lr 1000 Ml Inj) 1,000 mls @ 150 mls/hr IV.CONT .Q6H40M [facility] Last Admin: 11/15/17 06:24 Dose: Not Given Oxytocin (Pitocin 30 Units/Ns 500 Ml Premix) 30 units in 500 mls @ 100 mls/hr IV.SIG UNSCH PRN PRN Reason: Heavy bleeding Last Infusion: 11/14/17 00:45 Dose: Infused Ibuprofen (Motrin) 800 mg PO Q8H PRN PRN Reason: cramping Last Admin: 11/13/17 23:47 Dose: 800 mg Ibuprofen (Motrin) 600 mg PO Q6H PRN PRN Reason: ABDOMINAL PAIN Last Admin: 11/15/17 08:21 Dose: 600 mg Ondansetron HCl (Zofran Inj) 4 mg IV.PUSH Q6H PRN PRN Reason: NAUSEA OR VOMITING Oxycodone/Acetaminophen (Percocet 5/325 Mg) 2 tab PO Q4H PRN PRN Reason: PAIN SCALE 6 TO 10 Oxycodone/Acetaminophen (Percocet 5/325 Mg) 1 tab PO Q4H PRN PRN Reason: PAIN SCALE 3 TO 5 Last Admin: 11/14/17 05:31 Dose: 1 tab Senna/Docusate Sodium (Angelita-Colace) 2 tab PO Q12H PRN PRN Reason: CONSTIPATION Last Admin: 11/14/17 12:10 Dose: 2 tab Simethicone (Mylicon Chew) 80 mg PO QID PRN PRN Reason: FLATULENCE Sodium Chloride (Ns Flush) 2 ml IV.FLUSH BID ANDREW Last Admin: 11/15/17 01:33 Dose: Not Given Sodium Chloride (Ns Flush) 2 ml IV.FLUSH PRN PRN PRN Reason: FLUSH AFTER USING IV ACCESS Zolpidem Tartrate (Ambien) 5 mg PO HS PRN PRN Reason: INSOMNIA Assessment and Plan - Plan POD #1 pt doing well pain well managed with oral pain medication will repeat cbc today pt did not shower will do so today bonding with routine post op care Discharge Planning: dc home tomorrow
[2017-11-15 16:02] LABS: Hematocrit 25.6 % (35.0-46.0); Hemoglobin 8.5 gm/dL (11.6-15.3); Mean Corpuscular HGB Conc 33.2 % (32.0-36.0); Mean Corpuscular Hemoglobin 28.3 pg (27.0-34.0); Mean Corpuscular Volume 85.4 fL (80.0-100.0); Mean Platelet Volume 8.2 fL (7.0-11.0); Platelet Count 268 th/mm3 (150-450); Red Cell Distribution Width 13.4 % (11.6-17.2); White Blood Count 10.7 th/mm3 (4.0-11.0)
[2017-11-16] MEDS: Ibuprofen 600 MG Tablet PO PRN ×2 (03:58→11:20)
[2017-11-16] MEDS: Heparin - SQ 10,000 UNITS/ML Vial SQ SCH (06:07)
[2017-11-16 07:56] VITALS: BP 116/71; PULSE 72; RESP 20; TEMP 97.9
[2017-11-16] MEDS: Senna/Docusate Sodium 8.6/50 MG Tablet PO PRN (07:56)
--- NOTE | 2017-11-16 11:03 | P.PNOB ---
Subjective Post op day: 3 Objective Vital Signs/I&O: Vital Signs 11/15/17 20:00 11/16/17 07:55 Temperature 98.1 F 97.9 F Pulse Rate 86 72 Respiratory Rate 18 20 Blood Pressure 97/52 L 116/71 Result Diagrams: 11/15/17 15:45 Objective Remarks: GENERAL: Well-nourished, well-developed patient. CARDIOVASCULAR: Regular rate and rhythm without murmurs, gallops, or rubs. RESPIRATORY: Breath sounds equal bilaterally. No accessory muscle use. ABDOMEN/GI: Abdomen soft, non-tender, bowel sounds present. Incision: Clean, dry and intact. Fundus: Firm, non-tender at umbilicus. GENITOURINARY: Light to moderate bleeding. EXTREMITIES: No cyanosis or edema, non-tender, without signs of DVT. Medications and IVs: Active Medications Acetaminophen (Tylenol) 650 mg PO Q6H PRN PRN Reason: PAIN SCALE 1 TO 2 Citric Acid/Sodium Citrate (Sodium Citrate/Citric Acid Liq) [address] Stop: 11/17/17 15:14 Heparin Sodium (Porcine) (Heparin Inj) 5,[address] [facility] Last Admin: 11/16/17 06:07 Dose: 5,000 units Cefazolin Sodium 2,000 mg/ (Sodium Chloride) 100 mls @ 200 mls/hr IV.SIG [facility]IL[facility] Stop: 11/17/17 15:59 Lactated Ringer's (Lr 1000 Ml Inj) 1,000 mls @ 150 mls/hr IV.CONT .Q6H40M [facility] Last Admin: 11/15/17 14:52 Dose: Not Given Oxytocin (Pitocin 30 Units/Ns 500 Ml Premix) 30 units in 500 mls @ 100 mls/hr IV.SIG UNSCH PRN PRN Reason: Heavy bleeding Last Infusion: 11/14/17 00:45 Dose: Infused Ibuprofen (Motrin) 800 mg PO Q8H PRN PRN Reason: cramping Last Admin: 11/13/17 23:47 Dose: 800 mg Ibuprofen (Motrin) 600 mg PO Q6H PRN PRN Reason: ABDOMINAL PAIN Last Admin: 11/16/17 03:58 Dose: 600 mg Ondansetron HCl (Zofran Inj) 4 mg IV.PUSH Q6H PRN PRN Reason: NAUSEA OR VOMITING Oxycodone/Acetaminophen (Percocet 5/325 Mg) 2 tab PO Q4H PRN PRN Reason: PAIN SCALE 6 TO 10 Oxycodone/Acetaminophen (Percocet 5/325 Mg) 1 tab PO Q4H PRN PRN Reason: PAIN SCALE 3 TO 5 Last Admin: 11/16/17 07:55 Dose: 1 tab Senna/Docusate Sodium (Angelita-Colace) 2 tab PO Q12H PRN PRN Reason: CONSTIPATION Last Admin: 11/16/17 07:56 Dose: 2 tab Simethicone (Mylicon Chew) 80 mg PO QID PRN PRN Reason: FLATULENCE Sodium Chloride (Ns Flush) 2 ml IV.FLUSH BID ANDREW Last Admin: 11/16/17 04:59 Dose: Not Given Sodium Chloride (Ns Flush) 2 ml IV.FLUSH PRN PRN PRN Reason: FLUSH AFTER USING IV ACCESS Zolpidem Tartrate (Ambien) 5 mg PO HS PRN PRN Reason: INSOMNIA Assessment and Plan - Plan POD #3 pt doing well cbc stable will treat with iron post pt will start Lovenox at home pain well managed with oral pain medication routine post op care Discharge Planning: dc home today
--- NOTE | 2017-11-16 11:06 | P.DS ---
Date of admission: 11/13/17 15:21 Primary care physician: No Primary Care Physician Brief History from admission: Patient is a 31-year-old white female G 10 now 37 weeks previous C- section [address] Gamez who presents now with contractions and decreased movement. She presents complaining of painful regular contractions and on the monitor every 3-4 minute she is having a significant contractions that she certainly describes as very painful, heart rate tracing reactive, patient has a history of antiphospholipid syndrome and has had a demise in the past that she did deliver vaginally and then 4 C- sections she has had for spontaneous AB's as well once again is all related to her coagulation defect. She has been on heparin and aspirin through this and her last dosing was at 5 AM this morning a shot of heparin and baby aspirin DS: Diagnosis - Discharge Diagnosis (1) Anemia Status: Acute (2) Antiphospholipid syndrome complicating , antepartum Status: Acute (3) S/P repeat low transverse Status: Acute DS: Medications - Discharge Medications Prescriptions: ibuprofen 600 mg PO Q6H PRN #30 tab PRN Reason: Abdominal Pain oxycodone-acetaminophen 1 - 2 tab PO Q4H PRN #30 tab PRN Reason: Pain, Moderate DS: Summary Hospital Course: 37 weeks previous c section x4 labor repeat c section routine post op care - Time Spent with Patient Total time spent providing and/or coordinating discharge services: Less than 30 minutes Exam Vital signs: Vital Signs 11/15/17 20:00 11/16/17 07:55 Temperature 98.1 F 97.9 F Pulse Rate 86 72 Respiratory Rate 18 20 Blood Pressure 97/52 L 116/71 Narrative: see post op exam Results Procedures completed during hospitalization: repeat c section Labs on day of discharge: Labs from last 24 hours 11/15/17 15:45 WBC 10.7 RBC 3.00 L Hgb 8.5 L Hct 25.6 L MCV 85.4 MCH 28.3 MCHC 33.2 RDW 13.4 Plt Count 268 MPV 8.2 Discharge Plan - Discharge Disposition Patient Disposition: 01 Discharge Home - Discharge Condition Condition: Good - Discharge Order Discharge Orders: Discharge Order (Routine); Ordered 11/16/17 Ordered By: Yolette Clarke COMPUTER TRAINER Clear for Discharge (Routine); Ordered 11/16/17 Ordered By: Yolette Clarke - Physicians Team Primary Care Provider: Primary Care [facility] Mcclure Attending Provider: Isaac Geiger
== END 2017-11-16 14:55 | disposition home or self-care (01) ==
LOC: HOBED 14:27 → H2E 15:21 → H1EA 20:11
PROVIDERS: ADMIT Obstetrics & Gynecology; ATTEND Obstetrics & Gynecology